=== PATIENT | female | born 2005 | race Caucasian/White ===

== ENCOUNTER 2024-01-03 06:02 | Day surgery (SDC) | payer BC, SELFPAY ==
[2024-01-03] MEDS: LACTATED RINGERS 1000 ML 1,000 ML 100 ML IV (05:50)
[2024-01-03 06:13] VITALS: BMI 25.8
[2024-01-03] MEDS: SODIUM CHLORIDE 0.9 % (FLUSH) 10 ML SYRINGE IVF (06:18)
[2024-01-03 06:22] LABS: Ur HCG Qualitative* Negative (Negative)
[2024-01-03 06:35] VITALS: BP 129/82; PULSE 93; RESP 16; TEMP 36.1; O2SAT 100
[2024-01-03] MEDS: CEFAZOLIN 2 GM INJ IVP (07:20)
[2024-01-03] MEDS: BUPIVACAINE 0.5% 30 ML INJECTION (07:25)
--- NOTE | 2024-01-03 08:04 | P.ORPRC_ITS ---
Procedure Note Date of procedure: 01/03/24 Procedure: Preop diagnosis: Left upper extremity cubital tunnel syndrome Postop diagnosis: Left upper extremity cubital tunnel syndrome Procedure: Left upper extremity cubital tunnel release Anesthesia: Local plus monitored anesthesia care Surgeon: Jl Marley MD assistant plant control operator: Sheri Lang PA-C EBL: 0 mL Complications: None Specimens: None Drains: None Preoperative antibiotics: Ancef 1 g Indications: The patient has a history of left upper extremity cubital tunnel syndrome symptoms. EMG/nerve conduction study confirms the diagnosis. Despite appropriate nonoperative management they continue to have symptoms. Operative intervention was recommended. The risks, benefits alternatives and expected outcomes were discussed in detail. These included but were not limited to: Infection, bleeding, injury to blood vessel or nerve, venous thromboembolism. All questions were answered to their satisfaction. The patient was placed supine on the operating room table. IV sedation was administered. The upper extremity was prepped and draped in usual sterile fashion. 1% lidocaine, with epinephrine +0.5% Marcaine with epinephrine were used for soft tissue anesthesia. A longitudinal incision was made centered over the ulnar nerve at the cubital tunnel. Subcutaneous dissection was taken with the scalpel and tenotomy scissors to the ulnar nerve. Dissection was carried distally to the fascia over the flexor carpi ulnaris which was divided longitudinally. We visualized the motor branch to the FCU. Dissection was carried proximally into the triceps muscle belly. This results in a wide decompression of the ulnar nerve. Flexion and extension of the elbow shows the nerve is stable. The wound was irrigated with normal saline. It was closed with a 2-0 Vicryl and a 3-0 Monocryl in a subcuticular fashion. Glue was used to seal the skin. A soft dressing was applied. The patient tolerated the procedure well, there were no apparent complications. They were sent to same day surgery in satisfactory condition. Plan: Use of the upper extremity as tolerates. Discontinue the intraoperative dressing on postoperative day 3 and may get the wound wet as tolerates. Follow up in the office in 1-2 weeks for a wound check.
[2024-01-03 08:20] VITALS: BP 114/73; PULSE 88; RESP 16; TEMP 36.1; O2SAT 100
--- NOTE | 2024-01-03 08:26 | W.ANESCHARGE ---
Anesthesia Charges Start Date/Time Anesthesia Start Date: 01/03/24 Anesthesia Start Time: 07:19 Stop Date/Time Anesthesia Stop Date: 01/03/24 Anesthesia Stop Time: 08:23
[2024-01-03 08:30] VITALS: BP 112/83; PULSE 90; RESP 16; O2SAT 100
[2024-01-03 08:45] VITALS: BP 118/74; PULSE 77; RESP 16; O2SAT 100
[2024-01-03 08:57] VITALS: BP 120/68; PULSE 73; RESP 16; O2SAT 100
== END 2024-01-03 09:24 | disposition home or self-care (01) ==
PROVIDERS: Nurse Anesthetist, Certified Registered; Visit Provider Orthopaedic Surgery
PROC: (CPT 64718; principal; 2024-01-03 07:15)
DX: G56.22 Lesion of ulnar nerve, left upper limb (principal)
CPT/HCPCS: 64718; 01712; 81025; J0665; J0690; J1100; J2250; J2405; J2704; J3010; J7120